=== PATIENT | male | born 2000 | race Caucasian/White ===

== ENCOUNTER → 2024-04-18 15:39 | Outpatient (CLI) | payer OTHER, SELFPAY ==
--- NOTE | 2024-04-18 15:42 | DI.US.S_ITS ---
PROCEDURE: US ABDOMEN LIMITED INDICATIONS: EPIGASTRIC ABD PAIN TECHNIQUE: Real-time focused scanning was performed of the abdomen, with image documentation. COMPARISON: None. FINDINGS: The liver is normal in size and echotexture. The gallbladder appears normal. No biliary distention is present with the common bile duct measuring 4 mm. The pancreas visualized appears normal. No abnormal peritoneal free fluid is seen. IMPRESSION: Normal abdominal ultrasound. Source of right upper quadrant pain is not found. Dictated by: Bharath Lopes M.D. on 04/19/2024 at 11:50 Approved by: Bharath Lopes M.D. on 04/19/2024 at 11:51
== END ==
LOC: US 15:41
PROVIDERS: Referring Provider Internal Medicine; Visit Provider Internal Medicine
DX: R10.13 Epigastric pain (principal)
CPT/HCPCS: 76705